=== PATIENT | female | born 1930 | race Caucasian/White ===

== ENCOUNTER 2016-03-28 20:30 | Observation (INO) | payer OTHER ==
[~2016-03-28] VITALS: Ht 167.6 cm; Wt 80.0 kg
[~2016-03-28 20:30] MED LIST: ACETAMINOPHEN325 M1 PO; AMLODIPINE BESY10 MG PO; AZELASTINE205.5 MCG/ BOTH NARES; CIPRO250 MG PO; CRANBERRY TABL1 EACH PO; CYANOCOBAL1000 MCG/2 IM; MESTINON180 MG PO; MESTINON60 MG PO; MYCOPHENOLATE500 MG PO; OMEGA-31000 M1 PO; PANTOPRAZOLE SO40 MG PO; PRAMIPEXOLE D0.25 MG PO; PYRIDOSTIGMINE180 MG PO; SYNTHROID50 MCG PO; VALSARTAN80 MG PO; VESICARE10 MG PO; ZOFRAN8 MG PO
[2016-03-28 22:10] LABS: HEMATOCRIT 22.6 % (36.0-46.0); MCH 24.2 PG (29.0-34.0); MCV 78.2 FL (83-99); MEAN PLAT.VOLUME 9.1 uM^3 (9.5-12.4); PLATELET COUNT 402 K/uL (156-360); RBC DIS.WIDTH-CV 14.9 % (11.8-14.6); RBC DIS.WIDTH-SD 40.8 % (39-53); RED BLOOD COUNT 2.89 M/uL (3.80-5.20); WHITE BLOOD COUNT 5.3 K/uL (4.1-10.2)
[2016-03-28 22:11] LABS: CHLORIDE 102 mEq/L (99-109); POTASSIUM 4.8 mEq/L (3.7-5.4); SODIUM 131 mEq/L (136-147)
[2016-03-28 22:13] LABS: GLUCOSE 113 mg/dL (70-99)
[2016-03-28 22:14] LABS: ANION GAP 10 MEQ/L (2-14)
[2016-03-28 22:17] LABS: GFR ESTIMATE (CALCULATED) 56 mL/min/
[2016-03-28 22:18] LABS: UREA NITROGEN (BUN) 22 mg/dL (9-23)
[2016-03-29] VITALS (9 sets, daily range): BP systolic 117–136; BP diastolic 58–78
[2016-03-29] MEDS ORDERED: MESTINON60 MG PO (01:00)
[2016-03-29] MEDS ORDERED: ZOFRAN8 MG PO (01:01)
[2016-03-29] MEDS ORDERED: NEURONTIN300 MG PO (01:03)
[2016-03-29] MEDS ORDERED: PATADAY2.5 ML BOTH EYES (01:04)
[2016-03-29] MEDS ORDERED: DUONEB 2.5-0.5 M3 ML AEROSOL (01:04)
[2016-03-29] MEDS ORDERED: MAG-OXIDE400 MG PO (01:05)
[2016-03-29] MEDS ORDERED: GUAIFENESIN WI120 ML PO (01:05)
[2016-03-29 06:47] LABS: ANION GAP 8 MEQ/L (2-14); CHLORIDE 104 MEQ/L (99-109); GFR ESTIMATE (CALCULATED) > 59 mL/min/; GLUCOSE 98 mg/dL (70-99); POTASSIUM 4.3 MEQ/L (3.7-5.4); SAMPLE HEMOLYSIS CHECK 0; SAMPLE ICTERIC CHECK 0; SAMPLE LIPEMIA CHECK 0; SODIUM 134 MEQ/L (136-147); UREA NITROGEN (BUN) 17 mg/dL (9-23)
[2016-03-29 11:56] LABS: HEMATOCRIT 28.6 % (36.0-46.0); MCV 78.8 FL (83-99)
== END 2016-03-29 14:00 | disposition home or self-care (01) ==
LOC: EME → EDBD 20:30 → EME 20:30 → EDOF 03-29 02:16
PROVIDERS: Emergency Medicine; Internal Medicine; Student in an Organized Health Care Education/Training Program
PROC: 30233N1 Transfusion of Nonautologous Red Blood Cells into Peripheral Vein, Percutaneous Approach (ICD-10-PCS; principal; 2016-03-29)
DX: D53.9 Nutritional anemia, unspecified (principal); C64.1 Malignant neoplasm of right kidney, except renal pelvis; C79.89 Secondary malignant neoplasm of other specified sites; C78.01 Secondary malignant neoplasm of right lung; R91.8 Other nonspecific abnormal finding of lung field; E87.1 Hypo-osmolality and hyponatremia; Z66 Do not resuscitate; Z85.3 Personal history of malignant neoplasm of breast; Z88.0 Allergy status to penicillin; Z88.6 Allergy status to analgesic agent; Z88.1 Allergy status to other antibiotic agents; Z88.5 Allergy status to narcotic agent; Z79.899 Other long term (current) drug therapy; Z80.42 Family history of malignant neoplasm of prostate; Z80.0 Family history of malignant neoplasm of digestive organs; Z80.8 Family history of malignant neoplasm of other organs or systems
CPT/HCPCS: 71010; 80048; 83605; 85014; 85018; 85027; 86850; 86900; 86901; 86920; 87040; 93005; 94640; 99202; 99281; 99285; G0378; J1650; J7517; P9016

== ENCOUNTER 2016-07-28 21:54 | Inpatient (IN) | payer OTHER ==
[~2016-07-28] VITALS: Ht 170.2 cm; Wt 77.6 kg
[~2016-07-28 21:54] MED LIST changes: +DUONEB 2.5-0.5 M3 ML AEROSOL; +GUAIFENESIN WI120 ML PO; +MAG-OXIDE400 MG PO; +NEURONTIN300 MG PO; +PATADAY2.5 ML BOTH EYES
[2016-07-28 22:49] LABS: HEMATOCRIT 24.5 % (36.0-46.0); MCH 23.9 PG (29.0-34.0); MCHC 30.2 G/DL (30.0-36.0); MEAN PLAT.VOLUME 9.3 uM^3 (9.5-12.4); PLATELET COUNT 433 K/uL (156-360); RBC DIS.WIDTH-CV 14.6 % (11.8-14.6); RBC DIS.WIDTH-SD 41.8 % (39-53); WHITE BLOOD COUNT 11.2 K/uL (4.1-10.2)
[2016-07-28 22:59] LABS: CHLORIDE 102 mEq/L (99-109); POTASSIUM 4.4 mEq/L (3.7-5.4); SODIUM 133 mEq/L (136-147)
[2016-07-28 23:01] LABS: GLUCOSE 155 mg/dL (70-99)
[2016-07-28 23:02] LABS: ANION GAP 12 MEQ/L (2-14)
[2016-07-28 23:05] LABS: GFR ESTIMATE (CALCULATED) 56 mL/min/
[2016-07-28 23:06] LABS: UREA NITROGEN (BUN) 27 mg/dL (9-23)
[2016-07-28 23:08] LABS: PROTHROMBIN TIME 10.5 (9.2-11.2)
[2016-07-29] VITALS (11 sets, daily range): BP systolic 103–140; BP diastolic 50–67
[2016-07-29 06:36] LABS: HEMATOCRIT 21.7 % (36.0-46.0); MCH 24.6 PG (29.0-34.0); MCHC 30.4 G/DL (30.0-36.0); MEAN PLAT.VOLUME 9.3 uM^3 (9.5-12.4); PLATELET COUNT 384 K/uL (156-360); RBC DIS.WIDTH-CV 14.6 % (11.8-14.6); RBC DIS.WIDTH-SD 42.7 % (39-53); RED BLOOD COUNT 2.68 M/uL (3.80-5.20)
[2016-07-29 06:47] LABS: WHITE BLOOD COUNT 7.5 K/uL (4.1-10.2)
[2016-07-29 06:49] LABS: ADD MIUA? NO; BILIRUBIN NEGATIVE; BLOOD NEGATIVE; COLOR YELLOW ((YELLOW)); GLUCOSE (STRIP) NEGATIVE; KETONES NEGATIVE; LEUKOCYTES NEGATIVE; NITRITE NEGATIVE; PROTEIN (STRIP) NEGATIVE; SPECIFIC GRAVITY 1.012 (1.000-1.030); UCUL ADDED? NO; UROBILINOGEN 0.2 MG/DL (0.2-1.0)
[2016-07-29 06:53] LABS: ANION GAP 4 MEQ/L (2-14); CHLORIDE 104 MEQ/L (99-109); GFR ESTIMATE (CALCULATED) > 59 mL/min/; GLUCOSE 118 mg/dL (70-99); POTASSIUM 4.1 MEQ/L (3.7-5.4); SAMPLE HEMOLYSIS CHECK 0; SAMPLE ICTERIC CHECK 0; SAMPLE LIPEMIA CHECK 0; SODIUM 131 MEQ/L (136-147); UREA NITROGEN (BUN) 20 mg/dL (9-23)
[2016-07-29 22:47] LABS: HEMATOCRIT 26.5 % (36.0-46.0); MCV 82.3 FL (83-99)
[2016-07-30] VITALS (8 sets, daily range): BP systolic 113–151; BP diastolic 56–89
[2016-07-30 07:26] LABS: EOSINOPHIL (%) 0.7 % (0-5); EOSINOPHIL COUNT 0.1 K/uL (0-0.3); IMMATURE GRANULOCYTE (%) 0.4 % (0.0-0.7); LYMPHOCYTE COUNT 0.5 K/uL (1.0-2.8); MCH 26.2 PG (29.0-34.0); MCHC 31.6 G/DL (30.0-36.0); MCV 82.9 FL (83-99); MONOCYTE (%) 12.1 % (3-12); MONOCYTE COUNT 0.9 K/uL (0-0.8); NEUTROPHIL (%) 79.2 % (45-76); PLATELET COUNT 375 K/uL (156-360); RBC DIS.WIDTH-CV 14.9 % (11.8-14.6); RBC DIS.WIDTH-SD 45.1 % (39-53); WHITE BLOOD COUNT 7.5 K/uL (4.1-10.2)
[2016-07-30 07:28] LABS: RED BLOOD COUNT 3.74 M/uL (3.80-5.20)
[2016-07-30 07:52] LABS: ANION GAP 7 MEQ/L (2-14); CHLORIDE 102 MEQ/L (99-109); GFR ESTIMATE (CALCULATED) > 59 mL/min/; GLUCOSE 96 mg/dL (70-99); POTASSIUM 4.9 MEQ/L (3.7-5.4); SAMPLE HEMOLYSIS CHECK 0; SAMPLE ICTERIC CHECK 0; SAMPLE LIPEMIA CHECK 0; SODIUM 132 MEQ/L (136-147); UREA NITROGEN (BUN) 17 mg/dL (9-23)
[2016-07-31 04:09] VITALS: BP 123/59
[2016-07-31 06:05] LABS: HEMATOCRIT 29.4 % (36.0-46.0); MCV 82.4 FL (83-99)
[2016-07-31 08:22] VITALS: BP 152/67
[2016-07-31 11:53] VITALS: BP 129/58
[2016-07-31 16:07] VITALS: BP 128/59
[2016-07-31 19:29] VITALS: BP 116/53
[2016-07-31 23:35] VITALS: BP 117/58
[2016-08-01 04:00] VITALS: BP 139/78
[2016-08-01 05:25] LABS: HEMATOCRIT 25.9 % (36.0-46.0); MCV 81.2 FL (83-99)
[2016-08-01 07:51] VITALS: BP 127/81
[2016-08-01 14:59] VITALS: BP 136/65
[2016-08-01 23:07] VITALS: BP 107/61
[2016-08-02 05:53] LABS: MCHC 31.5 G/DL (30.0-36.0); MCV 82.5 FL (83-99); MEAN PLAT.VOLUME 9.2 uM^3 (9.5-12.4); PLATELET COUNT 332 K/uL (156-360); RBC DIS.WIDTH-CV 15.8 % (11.8-14.6); RED BLOOD COUNT 3.15 M/uL (3.80-5.20); WHITE BLOOD COUNT 6.4 K/uL (4.1-10.2)
[2016-08-02 06:35] LABS: ANION GAP 8 MEQ/L (2-14); CHLORIDE 97 MEQ/L (99-109); GFR ESTIMATE (CALCULATED) 56 mL/min/; GLUCOSE 87 mg/dL (70-99); POTASSIUM 4.6 MEQ/L (3.7-5.4); SAMPLE HEMOLYSIS CHECK 0; SAMPLE ICTERIC CHECK 0; SAMPLE LIPEMIA CHECK 0; SODIUM 128 MEQ/L (136-147); UREA NITROGEN (BUN) 20 mg/dL (9-23)
[2016-08-02 07:49] VITALS: BP 144/66
[2016-08-02] MEDS ORDERED: ENDOCET 5-3251 EACH PO (10:14)
[2016-08-02 16:04] VITALS: BP 138/60
[2016-08-02 23:57] VITALS: BP 113/58
[2016-08-03 06:26] LABS: HEMATOCRIT 25.8 % (36.0-46.0); MCH 27.1 PG (29.0-34.0); MCHC 32.2 G/DL (30.0-36.0); MCV 84.3 FL (83-99); MEAN PLAT.VOLUME 9.3 uM^3 (9.5-12.4); PLATELET COUNT 320 K/uL (156-360); RBC DIS.WIDTH-SD 49.3 % (39-53); RED BLOOD COUNT 3.06 M/uL (3.80-5.20); WHITE BLOOD COUNT 5.9 K/uL (4.1-10.2)
[2016-08-03 06:50] LABS: ANION GAP 9 MEQ/L (2-14); CHLORIDE 105 MEQ/L (99-109); GFR ESTIMATE (CALCULATED) > 59 mL/min/; GLUCOSE 83 mg/dL (70-99); POTASSIUM 5.1 MEQ/L (3.7-5.4); SAMPLE HEMOLYSIS CHECK 0; SAMPLE ICTERIC CHECK 0; SAMPLE LIPEMIA CHECK 0; UREA NITROGEN (BUN) 21 mg/dL (9-23)
[2016-08-03 06:53] LABS: SODIUM 136 MEQ/L (136-147)
[2016-08-03 07:32] VITALS: BP 157/69
== END 2016-08-03 10:35 | DRG 478 ==
LOC: EME → EDBD 21:54 → 3EAST 07-29 03:25 → EDOF 07-29 03:25 → 5EAST 07-29 04:53 → 3EAST 07-30 12:40
PROVIDERS: Emergency Medicine; Hospitalist; Internal Medicine; Orthopaedic Surgery
PROC: 0QS806Z Reposition Right Femoral Shaft with Intramedullary Internal Fixation Device, Open Approach (ICD-10-PCS; principal; 2016-07-30)
PROC: 0QB Lower Bones, Excision (ICD-10-PCS; principal; 2016-07-30)
PROC: 30233N1 Transfusion of Nonautologous Red Blood Cells into Peripheral Vein, Percutaneous Approach (ICD-10-PCS; principal; 2016-07-30)
DX: M84.551A Pathological fracture in neoplastic disease, right femur, initial encounter for fracture (principal); C79.51 Secondary malignant neoplasm of bone; G70.00 Myasthenia gravis without (acute) exacerbation; C64.9 Malignant neoplasm of unspecified kidney, except renal pelvis; D50.9 Iron deficiency anemia, unspecified; E87.1 Hypo-osmolality and hyponatremia; Z85.3 Personal history of malignant neoplasm of breast; K21.9 Gastro-esophageal reflux disease without esophagitis; Z85.238 Personal history of other malignant neoplasm of thymus; I10 Essential (primary) hypertension; E03.9 Hypothyroidism, unspecified; N32.81 Overactive bladder; Z90.5 Acquired absence of kidney; Z89.412 Acquired absence of left great toe; Z66 Do not resuscitate; Z51.5 Encounter for palliative care; I25.2 Old myocardial infarction; J98.4 Other disorders of lung
CPT/HCPCS: 73552; 76000; 80048; 81003; 85014; 85018; 85025; 85027; 85610; 86900; 86901; 86920; 88305; 88341 TC; 88342 TC; 93005; 94799; 97530 GO; 99202; 99281; 99285; C1713; J0131; J0690; J1644; J1650; J2250; J2270; J2405; J7030; J7050; J7120; J7517; P9016

== ENCOUNTER 2016-08-05 22:23 | Emergency (ER) | payer OTHER ==
[~2016-08-05] VITALS: Ht 167.6 cm; Wt 76.7 kg
[~2016-08-05 22:23] MED LIST changes: +ENDOCET 5-3251 EACH PO
[2016-08-05 22:59] LABS: HEMATOCRIT 28.8 % (36.0-46.0); MCH 25.8 PG (29.0-34.0); MCHC 31.9 G/DL (30.0-36.0); MCV 80.9 FL (83-99); MEAN PLAT.VOLUME 9.3 uM^3 (9.5-12.4); PLATELET COUNT 413 K/uL (156-360); RBC DIS.WIDTH-CV 16.6 % (11.8-14.6); RBC DIS.WIDTH-SD 48.9 % (39-53); RED BLOOD COUNT 3.56 M/uL (3.80-5.20); WHITE BLOOD COUNT 8.6 K/uL (4.1-10.2)
[2016-08-05 23:06] LABS: CHLORIDE 101 mEq/L (99-109); POTASSIUM 4.1 mEq/L (3.7-5.4); SODIUM 136 mEq/L (136-147)
[2016-08-05 23:07] LABS: MAGNESIUM 1.8 mg/dL (1.3-2.7)
[2016-08-05 23:09] LABS: ANION GAP 11 MEQ/L (2-14)
[2016-08-05 23:10] LABS: GLUCOSE 120 mg/dL (70-99)
[2016-08-05 23:11] LABS: GFR ESTIMATE (CALCULATED) > 59 mL/min/
[2016-08-05 23:12] LABS: UREA NITROGEN (BUN) 21 mg/dL (9-23)
[2016-08-06 02:08] VITALS: BP 143/96
== END 2016-08-06 02:25 ==
LOC: EME 22:23
PROVIDERS: Emergency Medicine
DX: E86.0 Dehydration (principal); I10 Essential (primary) hypertension; E03.9 Hypothyroidism, unspecified; J45.909 Unspecified asthma, uncomplicated
CPT/HCPCS: 80048; 83735; 85027; 93005; 99281; 99284

== ENCOUNTER 2016-10-22 19:27 | Emergency (ER) | payer OTHER ==
[~2016-10-22] VITALS: Ht 167.6 cm; Wt 68.1 kg
[2016-10-22] MEDS ORDERED: PERCOCET 5/31 TABLET PO (22:40)
[2016-10-23 00:50] VITALS: BP 131/65
== END 2016-10-23 00:55 | disposition hospice, home (50) ==
LOC: EME 19:27
DX: S42.492A Other displaced fracture of lower end of left humerus, initial encounter for closed fracture (principal); X58.XXXA Exposure to other specified factors, initial encounter; I10 Essential (primary) hypertension; E03.9 Hypothyroidism, unspecified; J45.909 Unspecified asthma, uncomplicated; Z86.718 Personal history of other venous thrombosis and embolism
CPT/HCPCS: 73060; 73080; 99281; 99284